=== PATIENT | female | born 1960 | race Caucasian/White ===

== ENCOUNTER → 2017-07-07 | Outpatient (CLI) | payer OTHER | LOC: FIMAGING 11:20 | PROVIDERS: ATTEND Family Medicine | DX: S82.492A Other fracture of shaft of left fibula, initial encounter for closed fracture (principal) ==

== ENCOUNTER → 2017-07-27 | Outpatient (CLI) | payer OTHER | LOC: FIMAGING 11:10 | PROVIDERS: ATTEND Family Medicine | DX: S89.392A Other physeal fracture of lower end of left fibula, initial encounter for closed fracture (principal) ==